=== PATIENT | female | born 1950 | race Caucasian/White ===

== ENCOUNTER → 2019-04-11 | Outpatient (CLI) | payer BC ==
--- NOTE | 2019-04-11 09:52 | RAD ---
EXAM: Abdomen sonogram. HISTORY: Pain. TECHNIQUE: Sonographic imaging of the abdomen was performed. COMPARISON: None. FINDINGS: The liver is normal in size. No focal hepatic lesion is seen. The gallbladder is unremarkable. The common duct is normal in caliber. The right kidney, pancreas and inferior vena cava are unremarkable. IMPRESSION: Unremarkable abdomen sonogram. Electronically signed by: Dominique Salcido MD (04/11/2019 9:49 AM) [id number]
== END | disposition home or self-care (01) ==
LOC: US 08:41
PROVIDERS: ATTEND Family Medicine
DX: R10.11 Right upper quadrant pain (principal)
CPT/HCPCS: 76705

== ENCOUNTER → 2020-01-19 | Outpatient (CLI) | payer BC ==
--- NOTE | 2020-01-25 17:12 | RAD ---
DATE: 01/19/2020 9:47 AM EXAM: DIGITAL SCREEN BILAT W/CAD HISTORY: Screening COMPARISON: 12/31/2018 Bilateral full field craniocaudal and mediolateral oblique images were obtained using digital technique. Implants placed views of the breasts in the CC and MLO projections were also obtained.This study was interpreted with the benefit of Computerized Aided Detection (CAD). FINDINGS: Breast Density: SCATTERED The breast parenchyma shows scattered fibroglandular densities. Breast parenchyma level B Bilateral subpectoral saline implants are redemonstrated. No suspicious masses, microcalcifications or architectural distortion is present to suggest malignancy in either breast. The visualized axillae are unremarkable. IMPRESSION: No mammographic evidence of malignancy. BI-RADS CATEGORY: 1 NEGATIVE RECOMMENDED FOLLOW-UP: 12M 12 MONTH FOLLOW-UP Annual screening mammography is recommended, unless clinically indicated sooner based on symptoms or change in physical exam. PQRS compliance statement: Patient information was entered into a reminder system with a target due date for the next mammogram. Mammography is a sensitive method for finding small breast cancers, but it does not detect them all and is not a substitute for careful clinical examination. A negative mammogram does not negate a clinically suspicious finding and should not result in delay in biopsying a clinically suspicious abnormality. "Our facility is accredited by the [employer] Mammography Program."
== END | disposition home or self-care (01) ==
LOC: MAMMO 09:30
PROVIDERS: ATTEND Physician Assistant
DX: Z12.31 Encounter for screening mammogram for malignant neoplasm of breast (principal)
CPT/HCPCS: 77067

== ENCOUNTER → 2021-04-19 | Outpatient (CLI) | payer BC ==
--- NOTE | 2021-04-19 12:02 | RAD ---
INDICATION : Routine Screening. COMPARISON: December 2019 TECHNIQUE: Standard mammogram screening views of the bilateral breasts were obtained with 3D tomosynt hesis. CAD was utilized. FINDINGS: The breasts are scattered density. No definite suspicious mass. Bilateral breast implants are identi fied. IMPRESSION: BI-RADS Category 1: Negative. The patient was placed into the recall system with a suggested recall date for follow up imaging. Mammography is the most sensitive method for finding small breast cancers, but it does not detect the m all and is not a substitute for careful clinical examination. A negative mammogram does not negate a clinically suspicious finding and should not result in delay in biopsying a clinically suspicious abnormality. Electronically signed by: Orestes Forbes MD (04/19/2021 11:59 AM) [id number]
== END ==
LOC: MAMMO 07:32
PROVIDERS: ATTEND Physician Assistant
DX: Z12.31 Encounter for screening mammogram for malignant neoplasm of breast (principal)
CPT/HCPCS: 77063; 77067